=== PATIENT | male | born 2000 | race Two or more races ===

== ENCOUNTER 2024-09-15 10:26 | Emergency (ER) | payer SELFPAY ==
[2024-09-15 10:30] VITALS: BP 152/86; PULSE 73; TEMP 36.5; O2SAT 99; BMI 40.9
--- NOTE | 2024-09-15 10:40 | ED.GENADUL1 ---
HPI HPI - General Adult General Chief complaint: Extremity Problem, Nontraumatic Stated complaint: RT ELBOW PAIN Time Seen by Provider: 09/15/24 10:33 Source: patient Mode of arrival: walk-in History of Present Illness HPI narrative: 24-year-old male presents to the emergency department for swelling in his right arm. He has had no injury and moves his elbow without difficulty or discomfort. No weakness or numbness in his arm. He came at the urging of his significant other who was concerned. He feels like there has been some swelling. Related Data Home Medications ?Medication ?Instructions ?Recorded ?Confirmed No Known Home Medications 09/15/24 09/15/24 Allergies Allergy/AdvReac Type Severity Reaction Status Date / Time No Known Drug Allergies Allergy Verified 09/15/24 10:30 Opioid HPI Opioid Management Most Recent Opioid Data: No Data to Display Review of Systems ROS Narrative A ten point review of systems is negative except as noted above. PFSH PFSH Social History Little interest or pleasure in doing things: not at all Feeling down, depressed, or hopeless: not at all Exam Narrative Exam Narrative: Nurses note and vital signs reviewed and patient is not hypoxic. General: The patient appears well and in no apparent distress. Patient is resting comfortably on cart. Skin: Warm, dry, no pallor noted. There is no rash noted. Head: Normocephalic, atraumatic Eye: Normal conjunctiva, no drainage Ears, Nose, Mouth, and Throat: oral mucosa is moist. Nares patent. Cardiovascular: Regular Rate and Rhythm Respiratory: Patient is in no distress, no accessory muscle use, lungs are clear to auscultation, no wheezing, rales or rhonchi Back: non-tender GI: Soft and nontender Musculoskeletal: The right elbow has full range of motion without any discomfort whatsoever. Radial pulse 2+ and fingers have full range of motion. He seems to have some swelling in the proximal right forearm area. There is no erythema or wounds or fluctuance. Neurological: A&O, normal speech Psychiatric: Cooperative Constitutional Vital Signs, click to edit/add: Last Vital Signs Temp 97.7 F 09/15/24 10:30 Pulse 73 09/15/24 10:30 Resp 16 09/15/24 10:30 BP 152/86 H 09/15/24 10:30 Pulse Ox 99 09/15/24 10:30 O2 Del Method Room Air 09/15/24 10:30 Course Vital Signs Vital signs: Vital Signs Temperature 97.7 F 09/15/24 10:30 Pulse Rate 73 09/15/24 10:30 Respiratory Rate 16 09/15/24 10:30 Blood Pressure 152/86 H 09/15/24 10:30 Pulse Oximetry 99 09/15/24 10:30 Oxygen Delivery Method Room Air 09/15/24 10:30 Temperature 97.7 F 09/15/24 10:30 Pulse Rate 73 09/15/24 10:30 Respiratory Rate 16 09/15/24 10:30 Blood Pressure 152/86 H 09/15/24 10:30 Pulse Oximetry 99 09/15/24 10:30 Oxygen Delivery Method Room Air 09/15/24 10:30 Medical Decision Making MDM Narrative Medical decision making narrative: His workup is negative including Doppler ultrasound and x-ray and blood work. I have no suspicion of an infection and there is no evidence of DVT. Treatment diagnosis and follow-up were discussed with the patient. Differential Diagnosis Differential Diagnosis: DVT, cellulitis, joint effusion Lab Data Lab results reviewed: Yes I reviewed the patient's lab results Labs: Lab Results 09/15/24 Range/Units 10:51 WBC 9.2 (4.0-11.0) 10^3/uL RBC 4.75 (4.70-6.10) 10^6/uL Hgb 14.1 (14.0-18.0) g/dL Hct 41.9 L (42.0-54.0) % MCV 88.2 (80.0-94.0) fL MCH 29.7 (25.9-34.0) pg MCHC 33.7 (29.9-35.2) g/dL RDW 12.3 (11.0-15.0) % Plt Count 309 (150-450) 10^3/uL MPV 9.6 (9.5-13.5) fL Neut % (Auto) 68.8 (43.0-75.0) % Lymph % (Auto) 17.4 L (20.5-60.0) % Leslie % (Auto) 9.0 (1.7-12.0) % Eos % (Auto) 3.9 (0.9-7.0) % Baso % (Auto) 0.5 (0.2-2.0) % Neut # (Auto) 6.3 (1.4-6.5) 10^3/uL Lymph # (Auto) 1.6 (1.2-3.8) 10^3/uL Leslie # (Auto) 0.8 (0.3-0.8) 10^3/uL Eos # (Auto) 0.4 (0.0-0.7) 10^3/uL Baso # (Auto) 0.1 (0.0-0.1) 10^3/uL Abs Immat Gran (auto) 0.04 H (0.00-0.03) 10^3/uL Imm/Tot Granulo (auto) 0.4 (0.0-0.5) % Sodium 137 (136-145) mmol/L Potassium 4.0 (3.5-5.1) mmol/L Chloride 104 (98-107) mmol/L Carbon Dioxide 23.8 (21.0-32.0) mmol/L Anion Gap 13.2 BUN 10.0 (7.0-18.0) mg/dL Creatinine 0.75 (0.70-1.30) mg/dL Est GFR ( Amer) >60 (>=60 mL/min/1.73m^2) Est GFR (Non-Af Amer) >60 (>=60 mL/min/1.73m^2) BUN/Creatinine Ratio 13.3 Glucose 103 (74-106) mg/dL Calcium 8.5 (8.5-10.1) mg/dL Imaging Data Right elbow x-ray, right arm Doppler: Radiologist's impression: X-ray elbow: No acute fracture, no increased fluid in the right elbow joint Doppler right arm: No DVT in the right upper extremity, no superficial vein thrombosis, no focal fluid collection Discharge Plan Discharge Chief Complaint: Extremity Problem, Nontraumatic Clinical Impression: Right arm pain Patient Disposition: Home, Self-Care Time of Disposition Decision: 12:25 Condition: Good Mode of Transportation: Private Vehicle Prescriptions / Home Meds: No Action No Known Home Medications Print Language: Lithuanian Instructions: Arm Pain (ED) Referrals: Physician,Non-Staff, MD [Primary Care Provider] - 1 week
[2024-09-15 11:03] LABS: Basophils Absolute Auto 0.1 10^3/uL (0.0-0.1); Basophils Percent Auto 0.5 % (0.2-2.0); Eosinophils Absolute Auto 0.4 10^3/uL (0.0-0.7); Eosinophils Percent Auto 3.9 % (0.9-7.0); Hematocrit 41.9 % (42.0-54.0); Hemoglobin 14.1 g/dL (14.0-18.0); Immature Granulocytes Abs Auto 0.04 10^3/uL (0.00-0.03); Immature Granulocytes Pct Auto 0.4 % (0.0-0.5); Lymphocytes Absolute Auto 1.6 10^3/uL (1.2-3.8); Lymphocytes Percent Auto 17.4 % (20.5-60.0); Mean Corpuscular HGB Conc 33.7 g/dL (29.9-35.2); Mean Corpuscular Hemoglobin 29.7 pg (25.9-34.0); Mean Corpuscular Volume 88.2 fL (80.0-94.0); Mean Platelet Volume 9.6 fL (9.5-13.5); Monocytes Absolute Auto 0.8 10^3/uL (0.3-0.8); Neutrophils Absolute Auto 6.3 10^3/uL (1.4-6.5); Neutrophils Percent Auto 68.8 % (43.0-75.0); Platelet Count 309 10^3/uL (150-450); Red Blood Count 4.75 10^6/uL (4.70-6.10); Red Cell Distribution Width 12.3 % (11.0-15.0); White Blood Count 9.2 10^3/uL (4.0-11.0)
[2024-09-15 11:12] LABS: Anion Gap 13.2; BUN Creatinine Ratio 13.3; Calcium 8.5 mg/dL (8.5-10.1); Carbon Dioxide 23.8 mmol/L (21.0-32.0); Chloride 104 mmol/L (98-107); Estimated GFR (African America >60 (>=60 mL/min/1.73m^2); Estimated GFR (Non-African Ame >60 (>=60 mL/min/1.73m^2); Glucose 103 mg/dL (74-106); Sodium 137 mmol/L (136-145)
== END 2024-09-15 12:33 | disposition home or self-care (01) ==
PROVIDERS: Emergency Provider Emergency Medicine
DX: M79.601 Pain in right arm (principal)
CPT/HCPCS: 36415; 73080; 80048; 85025; 93971; 99285

== ENCOUNTER 2024-12-26 10:11 | Emergency (ER) | payer OTHER, SELFPAY ==
[2024-12-26] VITALS (14 sets, daily range): BP systolic 134–156; BP diastolic 91; PULSE 58–78; TEMP 36.8; O2SAT 95–97; BMI 40.2
--- OUTSIDE RECORDS SUMMARY | 2024-12-26 10:19 | XMS_ITS | Clinical Summary ---
Author Organization [facility] Address [id number] [place] [address] Care Team Providers Care Section Hand Name Role Phone No Pcp, No Pcp Primary Care Provider Unavailabl e Allergies No known active allergies Medications No known medications Social History Tobacco Use Types Packs/Day Years Used Date Smoking Tobacco: Former Cigarettes Smokeless Tobacco: Never Tobacco Cessation:Counseling Given: Not Answered Childcare Answer Date Recorded Childcare Unknown 10/31/2018 Employment Answer Date Recorded Employment Unknown 10/31/2018 Sex and Gender Information Value Date Recorded Sex Assigned at Not on file Legal Sex Male 7:06 PM EDT Gender Identity Not on file Sexual Orientation Not on file Last Filed Vital Signs Vital Sign Reading Time Taken Comments Blood Pressure - - Pulse 94 06/21/2022 5:58 PM EST Temperature 37.1 C (98.8 F) 06/21/2022 5:58 PM EST Respiratory Rate 18 06/21/2022 5:58 PM EST Oxygen Saturation 97% 06/21/2022 5:58 PM EST Inhaled Oxygen Concentration - - Weight 127 kg (280 lb) 06/21/2022 5:58 PM EST Height - - Body Mass Index - - Plan of Treatment Not on file Medical Devices Not on file Care Teams Section Hand Relationship Specialty Start Date End Date No Pcp, [place] [address] PCP - General Family Medicine 06/21/22
--- NOTE | 2024-12-26 10:37 | XR_ITS ---
[facility] [place] [address] Patient Name: LUIS A ZARATE MRN: [id number] date: 2000 Sex: M Assigned Patient Location: ED.MAIN Current Patient Location: ED.MAIN Accession/Order Number: [id number] Exam Date: 12/26/2024 11:13 Report Date: 12/26/2024 11:15 At the request of: DOE LIM DO Procedure: XR chest 2V Chest 2 views CLINICAL HISTORY: L sided chest pain COMPARISON: None FINDINGS: Heart appears normal in size. Prominent bilateral hilar regions. No consolidation pneumothorax pleural effusion or free air. XR/XR chest 2V IMPRESSION: PROMINENT BILATERAL HILAR REGIONS WHICH MAY REPRESENT PULMONARY HYPERTENSION OR POSSIBLY ADENOPATHY. FURTHER EVALUATION WITH CT CHEST WITH IV CONTRAST IS RECOMMENDED. Impression dictated by: Joshua Ward Jr., D.O. 12/26/2024 11:15 AM Dictation Location: [place] [address] Electronically authenticated by: [id number] Y Date: 12/26/2024 11:15
--- NOTE | 2024-12-26 10:37 | ECG_ITS ---
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 Measurements Intervals [place] Rate: 74 P: 49 [place]: 178 QRS: 107 QRSD: 102 T: 5 QT: 352 QTc: 379 Interpretive Statements 1100 Sinus rhythm 4068 Nonspecific Twave abnormality 7100 Abnormal right axis deviation 9130 borderline ECG No previous ECG available for comparison Electronically Signed On 12-26-2024 22:00:03 EDT by VITOR COLBY M.D.
--- NOTE | 2024-12-26 10:39 | ED.GENADUL1 ---
HPI HPI - General Adult General Chief complaint: Chest Pain Stated complaint: chest pain Time Seen by Provider: 12/26/24 10:21 Source: patient Mode of arrival: walk-in Limitations: no limitations History of Present Illness HPI narrative: Patient is a 24 year old male presenting to the ED with concerns of left sided chest pain. States it started about an hour ago while at work. 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 He states the pain was located on the left side of his chest. Describes the pain as sore. He had associated left arm tingling as well. He states the pain promptly resolved after about 10 minutes. No history of trauma. He had no associated shortness of breath, diaphoresis, nausea, vomiting, back pain, neck/jaw pain, hemoptysis, fevers, chills, or leg pain. No cough or flu-like symptoms. No history of DVT/PE. No history of TX or previous cardiac conditions. He states he has a history of HTN but has been off his BP medication for years as he had no insurance. Related Data Home Medications ?Medication ?Instructions ?Recorded ?Confirmed No Known Home Medications 09/15/24 12/26/24 Allergies Allergy/AdvReac Type Severity Reaction Status Date / Time No Known Drug Allergies Allergy Verified 12/26/24 10:20 Opioid HPI Opioid Management Most Recent Opioid Data: Last Pain Scale 5 Today, 10:50 Review of Systems ROS Status of ROS 10 or more systems reviewed and unremarkable except as noted in history and below PFSH PFSH Family History (Updated 12/26/24 @ 10:47 by Fish Monahan DO) Other Family history of myocardial infarction Family history of stroke Social History (Updated 12/26/24 @ 10:47 by Fish Monahan DO) Smoking status: Former smoker Do you use any of these nicotine containing products: vaping products Little interest or pleasure in doing things: not at all Feeling down, depressed, or hopeless: not at all Exam Narrative Exam Narrative: GENERAL: well-appearing, no acute distress, answering questions and following commands appropriately SKIN: was warm and dry. No rashes or bruising of the chest wall. EYES: ?sclera white, no exudates EARS, NOSE, THROAT: ?no jugular venous distention. RESPIRATORY: [Clear to auscultation bilaterally, no wheezes, crackles, or stridor, no use of accessory muscles] CARDIOVASCULAR: [Normal rate and regular rhythm. There is no S3, S4, murmur, rub. Radial pulses are 2+ and symmetrical.] GASTROINTESTINAL: [Abdomen was non-distended.] MUSCULOSKELETAL: [There was no lower extremity edema. Full ROM of left upper extremities.] NEUROLOGIC: [Patient is awake and alert. Sensation intact to light touch in the bilateral upper extremities. 5/5 strength with left elbow flexion/extension and atv mechanic strength. Facies were symmetrical.] Constitutional Vital Signs, click to edit/add: Last Vital Signs Temp 98.3 F 12/26/24 10:17 Pulse 70 12/26/24 11:51 Resp 12 12/26/24 11:51 BP 134/91 12/26/24 11:51 Pulse Ox 97 12/26/24 11:51 O2 Del Method Room Air 12/26/24 11:51 Course Vital Signs Vital signs: Vital Signs Temperature 98.3 F 12/26/24 10:17 Pulse Rate 73 12/26/24 10:17 Respiratory Rate 18 12/26/24 10:17 Blood Pressure 156/91 H 12/26/24 10:17 Pulse Oximetry 95 12/26/24 10:17 Temperature 98.3 F 12/26/24 10:17 Pulse Rate 70 12/26/24 11:51 Respiratory Rate 12 12/26/24 11:51 Blood Pressure 134/91 12/26/24 11:51 Pulse Oximetry 97 12/26/24 11:51 Oxygen Delivery Method Room Air 12/26/24 11:51 Medical Decision Making [facility] Narrative Medical decision making narrative: 24 year old male presenting with 1 hour of left sided chest pain that self-resolved. Vital signs were significant for HTN, though he has a history of HTN and has been off anti-hypertensives for years. Otherwise, vitals were stable. He is afebrile and hemodynamically stable. He is saturating 97% on RA in no respiratory distress. He has an unremarkable physical examination. My clinical impression is the patient's symptoms are musculoskeletal in nature. He is otherwise young and healthy with minimal cardiac risk factors. I have low concern for acute myocardial ischemia or arrythmia, though an EKG was ordered to rule these etiologies out. I am essentiality able to rule out PE using the PERC criteria. CXR was ordered to rule out pneumothorax, pneumonia, or mass. 12 lead EKG demonstrated normal sinus rythm without evidence of myocardial ischemia. CXR demonstrated possible hilar lymphadenopathy vs. pulmonary hypertension. I do believe the patient is stable for discharge. I instructed him to follow up with a PCP for further management of uncontrolled HTN. Additionally, I informed him of the abnormal CXR findings. He wouuld benefit from further follow up with CT thorax, which I informed him of. His overall presentation is likely musculoskeletal in nature. Return precautions were given including new or worsening symptoms, such as severe CP or SOB. Patient understands and agress to the plan. Differential Diagnosis Differential Diagnosis: musculoskeletal chest pain, pneumothorax, arrythmia Medical Records Medical records reviewed: Yes I reviewed the patient's medical records Imaging Data Chest x-ray: Radiologist's impression: ITS Impressions Chest X-Ray 12/26/24 10:37 IMPRESSION: PROMINENT BILATERAL HILAR REGIONS WHICH MAY REPRESENT PULMONARY HYPERTENSION OR POSSIBLY ADENOPATHY. FURTHER EVALUATION WITH CT CHEST WITH IV CONTRAST IS RECOMMENDED. Impression dictated by: Joshua Ward Jr., D.OFlory 12/26/2024 11:15 AM Dictation Location: [place] [address] Electronically authenticated by: [id number] Y Date: 12/26/2024 11:15 ECG Data Attestation: I personally reviewed and interpreted this ECG as follows: (12-lead ECG demonstrated normal sinus rhythm without evidence of acute myocardial ischemia. Normal rate of 74 beats per minute. ?[place] is normal. [place], QRS, QTc interval is within normal limits. There were no ST or T wave abnormalities. ) Discharge Plan Discharge Chief Complaint: Chest Pain Clinical Impression: Atypical chest pain Patient Disposition: Home, Self-Care Time of Disposition Decision: 11:34 Condition: Good Mode of Transportation: Private Vehicle Prescriptions / Home Meds: No Action No Known Home Medications Print Language: Swiss Instructions: Chest Wall Pain (ED) Referrals: Physician,Non-Staff, MD [Primary Care Provider] - 1 week Discharge Date/Time: 12/26/24 11:54
== END 2024-12-26 11:54 | disposition home or self-care (01) ==
PROVIDERS: Emergency Provider Emergency Medicine
DX: R07.89 Other chest pain (principal); R20.2 Paresthesia of skin; R91.8 Other nonspecific abnormal finding of lung field
CPT/HCPCS: 71046; 93005; 99284